=== PATIENT | male | born 1955 | race Caucasian/White ===

== ENCOUNTER 2017-02-25 06:24 | Day surgery (SDC) | payer BC ==
[~2017-02-25] VITALS: Ht 172.7 cm; Wt 76.3 kg
[2017-02-25] VITALS (10 sets, daily range): BP systolic 103–155; BP diastolic 58–75; PULSE 67–88; RESP 16–18; TEMP 97.9–101; O2SAT 96–100
[~2017-02-25 06:24] MED LIST: ASPI-183 PO; DILT120C50 PO; FLUT50SP EACH NARE; SIMV10TA PO; VIAG50TA PO; [UNRECOGNIZED DRUG - OTHER]
[2017-02-25] MEDS ORDERED: IOHEXOL 350 MG/ML 50 ML BTL (for Cath Lab) OTHER ONE (06:25)
[2017-02-25] MEDS ORDERED: SODIUM CHLORID 0.9% 500 ML IV PRN ×2 (06:45)
[2017-02-25] MEDS ORDERED: LACTATED RINGER'S 1000 ML IV PRN (06:45)
[2017-02-25] MEDS ORDERED: METOPROLOL TARTRATE 25 MG TAB PO PRN (06:45)
[2017-02-25] MEDS ORDERED: CHLORHEXIDINE GLUCONATE 2 % 1 PACK (2 CLOTHS) TOPICAL PRN (06:45)
[2017-02-25] MEDS ORDERED: LORazepam 1 MG TAB SL SCH (06:45)
[2017-02-25] MEDS ORDERED: POVIDONE IODINE 5% (ANTISEPSIS KIT) 4 APPLICATIONS EACH NARE PRN (06:45)
[2017-02-25] MEDS ORDERED: INSULIN HUMAN REGULAR 1,000 UNITS/10 ML VIAL SQ PRN (06:45)
[2017-02-25] MEDS ORDERED: HEPARIN SODIUM - IV 10,000 UNITS/10 ML VIAL ONE (07:07)
[2017-02-25] MEDS ORDERED: SODIUM CHLOR 0.9% 250 ML INJ 250 ML ONE (07:07)
[2017-02-25] MEDS ORDERED: ISOPROTERENOL HCL 1 MG/5 ML AMP ONE (07:07)
[2017-02-25] MEDS ORDERED: FUROSEMIDE 40 MG/4 ML VIAL ONE (07:07)
[2017-02-25] MEDS ORDERED: PROTAMINE SULFATE 50 MG/5 ML VIAL ONE (07:07)
[2017-02-25] MEDS ORDERED: HEPARIN-D5W 25,000 U/250 ML 250 ML ONE (07:07)
[2017-02-25] MEDS ORDERED: APIX5TAB PO (07:08)
[2017-02-25] MEDS ORDERED: TRIAPOW (07:08)
[2017-02-25 07:25] LABS: AUTOMATED NEUTROPHIL # 7.5 TH/MM3 (1.8-7.7); BASOPHIL % 0.2 % (0.0-2.0); EOSINOPHIL # 0.2 TH/MM3 (0-0.4); EOSINOPHIL % 1.8 % (0.0-4.0); HEMO FLAGS DIFF FINAL; LYMPH % 19.3 % (9.0-44.0); LYMPHOCYTE # 2.1 TH/MM3 (1.0-4.8); MEAN CELL VOLUME 89.8 FL (80.0-100.0); MEAN CORPUSCULAR HEMOGLOBIN 31.7 PG (27.0-34.0); MEAN CORPUSCULAR HGB CONC 35.3 % (32.0-36.0); MONO % 8.5 % (0.0-8.0); NEUT % 70.2 % (16.0-70.0); PLATELET COUNT 192 TH/MM3 (150-450); RED BLOOD COUNT 5.02 MIL/MM3 (4.50-5.90); RED CELL DISTRIBUTION WIDTH 12.6 % (11.6-17.2); WHITE BLOOD COUNT 10.7 TH/MM3 (4.0-11.0)
[2017-02-25 07:32] LABS: APTT (PATIENT) 26.4 SEC (24.3-30.1); PROTHROMBIN TIME - PATIENT 10.6 SEC (9.8-11.6)
[2017-02-25 07:39] LABS: BICARBONATE 28.8 MEQ/L (21.0-32.0)
[2017-02-25] MEDS ORDERED: LEVOFLOXACIN 500 MG PREMIX INJ 100 ML IV ONE (07:41)
[2017-02-25] MEDS ORDERED: HEPARIN-NS/PF INJ 2,000 ML ONE (07:45)
[2017-02-25] MEDS ORDERED: LIDOCAINE HCL 1% 50 ML VIAL INFIL PRN (10:15)
[2017-02-25] MEDS ORDERED: LORazepam 2 MG/ML VIAL IV PUSH PRN (10:15)
[2017-02-25] MEDS ORDERED: oxyCODONE/ACETAMINOPHEN 5 MG/325 MG TAB PO PRN ×2 (10:15)
[2017-02-25] MEDS ORDERED: SODIUM CHLOR 0.9% 250 ML INJ 250 ML IV PRN (10:15)
[2017-02-25] MEDS ORDERED: ATROPINE SULFATE 1 MG/ML VIAL IV PUSH PRN (10:15)
[2017-02-25] MEDS ORDERED: ONDANSETRON HCL 4 MG/2 ML VIAL IV PUSH PRN (10:15)
[2017-02-25] MEDS ORDERED: SILDENAFIL 50 MG PO PRN (10:15)
--- NOTE | 2017-02-25 10:17 | CATHPROC ---
[facility] HIS Report Study Information Study Number Admission Scheduled Start Study Start [id number] Feb 25 2017 6:24AM 02/25/2017 Feb 25 2017 7:06AM [place] Service Electrophysiology Study Admit Source Facility Department Other [facility] - Display Fabrication Supervisor Physician and Clinical Staff Initial Malinda Guevara Energy Advisor Winston Nesbitt,RT(R) Energy Advisor Dalila Chávez,JANNET Other Anesthesia, ROCK CONTRACTOR Recorder Gail Finch,STAR Scrub Anjelica Estrada,SHEET METAL WORK FURNACE INSTALLER TECH2 Procedures Performed Procedure Location (Site) Vessel Name Ablation Procedure CRYO Ablation LIPV LIPV CRYO Ablation LSPV LSPV CRYO Ablation RIPV RIPV CRYO Ablation RSPV RSPV ICE CATHETER INSERT RA Atruim Venogram LIPV LIPV Venogram LSPV LSPV Venogram RIPV RIPV Venogram RSPV RSPV Equipment Time Supervisor Coffee Description Size Mfg Part Number Used/Scraped COPILOT VALVE, BLEEDBACK [id number] 08:28 [employer] Used CONTROL *[id number] TRANSDUCER, TRUWAVE [id number] 08:28 FIGUEROA [employer] * Used W/STOCKCOCK *[id number] NEEDLE, TRANSSEPTAL NRG 98 08:28 [facility] [id number] Used C1 COVER, TRANSDUCER CABLE 08:28 [employer] 612-113 Used ACUNAV 08:28 CONMED LEADWIRE, DEFIBRILLATION PAD 2001M-PC Used SHEATH SET, FR12 CHECK-BLAINE RCF-12.0-38-J 08:28 COOK/PACER FR12 Used 13CM *[id number] 08:28 CORDIS/PACER SHEATH, FR10 CHIARA 11CM FR 10 [id number] Used [id number] 08:28 [employer] P[employer], CCL CUSTOM * Used *[id number] 08:28 NanoICE PACER STRICKLAND, LIMB * 2530 *[id number] Used PSI-4F- 08:29 Periscope MEDICAL SHEATH, FR4.5 PRELUDE 11CM FR 4.5 Used 035ACT PSI-4F- 08:28 Periscope MEDICAL SHEATH, FR4.5 PRELUDE 11CM FR 4.5 Used 035ACT [id number] 08:28 Periscope MEDICAL WIRE, 3MMJ .035 180CM 180CM Used *[id number] 08:28 NAMIC MANIFOLD, 4 PORT * Used *[id number] 08:28 NAMIC TUBING, HIGH PRESSURE 20" 20" Used *[id number] [id number] 08:28 NAMIC TUBING, HIGH PRESSURE 48" 48" Used *[id number] 08:28 NAMIC TUBING, HIGH PRESSURE 48" 48" Used *[id number] TUBING, PRESSURE MONITORING [id number] 08:28 NAMIC PACER 72" Used 72" *0481927 08:56 NYCOMED OMNIPAQUE, 300 MG, 150ML 150ML [id number] Used [id number] 08:28 [employer]ON[employer] MEDICAL BLANKET,WARM AIR CCL * Used *[id number] 582197 08:28 [facility] CATHETER, JSN, QUAD FR 5 Used *[id number] 832173 08:28 [facility] MEDICAL CATHETER, JSN, QUAD FR 5 Used *[id number] CW1145 08:28 [facility] MEDICAL ELECTRODE KIT, JESSICA X SURFACE * Used *[id number] 992390 08:28 [facility] SHEATH, EPS, FR6 FAST CATH FR 6 Used *[id number] 08:28 [facility] SHEATH, EPS, FR7 FAST CATH FR 7 [id number] Used 910100 08:28 [facility] MED[facility] SHEATH, EPS, FR8 FAST CATH FR 8 Used *[id number] SHEATH, FR8.5 STEERABLE SM 08:42 [facility] MEDICAL 71CM [id number] Used 71CM CATHETER, ACUNAV FR10 ICE [id number] 08:39 KARON FR 10 Used (KARON) *[id number] [facility] PAD, ELECTROSURGICAL 08:28 * [id number] *[id number] Used SURGICAL GROUNDING (BLUE) BALLOON, ARCTIC FRONT [id number] 08:47 [employer]IT[employer]RON [employer] Used ADVANCE 28MM *[id number] CATHETER, ACHEIVE MAPPING 2ACH20 08:44 [employer] 20MM Used 20MM *[id number] SHEATH, FR12 FLEXCATH 08:45 [employer]RON [employer] FR 12 [id number] Used STEERABLE Equipment Model, Serial, Lot Number and Expiration Data Description Model Number Serial Number Lot Number Expiration Date CATHETER, ACHEIVE MAPPING [id number] 07-11-2018 20MM History: Allergies Allergy Reaction No Known Allergies History: Risk Factors Hypertension Yes Medication Medication Total Dose (Bolus/Oral) Medication Total Dosage/Unit 1% XYLOCAINE 40 mL HEPARIN 41481 units PROTAMINE 40 mg Medications (Bolus/Oral) Medication Time Given Dosage/Unit Administered By Reason 1% XYLOCAINE 02/25/2017 8:30:58 AM 20 mL Malinda Barron 20 mL 1% XYLOCAINE given in lab by Malinda Barron in Left Groin via Subcutaneous. Ordered by Joseph Barron 1% XYLOCAINE 02/25/2017 8:34:33 AM 20 mL Malinda Barron 20 mL 1% XYLOCAINE given in lab by Malinda Barron in Right Groin via Subcutaneous. Ordered by Rosanne Barron. HEPARIN 02/25/2017 8:43:34 AM 65983 units Anesthesia, ROCK CONTRACTOR As per physicians v erbal order 82614 units HEPARIN given in lab by Anesthesia, ROCK CONTRACTOR via Peripheral IV. Ordered by Malinda Barron. Nancy son: As per physicians verbal order. HEPARIN 02/25/2017 8:57:48 AM 1000 units Anesthesia, ROCK CONTRACTOR As per physicians v erbal order 1000 units HEPARIN given in lab by Anesthesia, ROCK CONTRACTOR via Peripheral IV. Ordered by Malinda Barron. Reas on: As per physicians verbal order. HEPARIN 02/25/2017 9:12:19 AM 2000 units Anesthesia, ROCK CONTRACTOR As per physicians v erbal order 2000 units HEPARIN given in lab by Anesthesia, ROCK CONTRACTOR via Peripheral IV. Ordered by Malinda Barron. Reas on: As per physicians verbal order. HEPARIN 02/25/2017 9:27:32 AM 1000 units Anesthesia, ROCK CONTRACTOR As per physicians v erbal order 1000 units HEPARIN given in lab by Anesthesia, ROCK CONTRACTOR via Peripheral IV. Ordered by Malinda Barron. Reas on: As per physicians verbal order. PROTAMINE 02/25/2017 9:59:51 AM 40 mg Anesthesia, ROCK CONTRACTOR As per physicians julio cesar bal order 40 mg PROTAMINE given in lab by Anesthesia, ROCK CONTRACTOR. Ordered by Malinda Barron. Reason: As per physicians verbal order. Medication (Drip) Medication Time Given Dosage/Unit Concentration/Unit Diluent (ml) Solution HEPARIN DRIP 02/25/2017 8:58:04 AM 1000 units/hr 54784 units 250 D5W 1000 units/hr HEPARIN DRIP given in lab by Anesthesia, ROCK CONTRACTOR via Peripheral IV. Pump/Drip Flow = 10 ml /hr using D5[place] [address] units in 250 ml. Ordered by Malinda Barron. Reason: As per physicians verbal order. ISUPREL 02/25/2017 9:46:14 AM 20 mcg/min 1 mg 250 NaCl .9 20 mcg/min ISUPREL given in lab by Anesthesia, ROCK CONTRACTOR via Peripheral IV. Pump/Drip Flow = 300 ml/hr usi ng NaCl .9 with a concentration of 1 mg in 250 ml. Ordered by Malinda Barron. Reason: As per physicians verbal order. LEVAQUIN 02/25/2017 8:00:10 AM 100 mL/hr 500 100 NaCl .9 100 mL/hr LEVAQUIN given in lab by Anesthesia, ROCK CONTRACTOR in Right Antecubital via Peripheral IV. Pump/Drip Flow = 0 ml/hr using NaCl .9 with a concentration of 500 in 100 ml. Ordered by Malinda Barron. Reason: As per physicians verbal order. fol ey insertion Initial Case Assessment Cardiovascular HR Rhythm NIBP Chest Pain 64 sr 135/70 0 Edema Present Skin color Skin None Normal Warm Dry Circulatory - Right Pulses Dorsalis Pedis 2 Scale (0,1,2,3,4,d) Circulatory - Left Pulses Dorsalis Pedis 2 Scale (0,1,2,3,4,d) Circulatory - Lower Extremities Color Lower Right Color Lower Left Normal Normal Neurological State Oriented to time-place- Alert Moves all extremities person Respiration - General Respiration Rate SpO2 (%) (B/min) 18 99 Final Case Assessment Cardiovascular HR Rhythm NIBP Chest Pain 69 sr 132/69 0 Edema Present Skin color Skin None Normal Warm Dry Circulatory - Right Pulses Dorsalis Pedis 1 Scale (0,1,2,3,4,d) Circulatory - Left Pulses Dorsalis Pedis 1 Scale (0,1,2,3,4,d) Circulatory - Lower Extremities Color Lower Right Color Lower Left Normal Normal Neurological State Lethargic Moves all extremities Respiration - General Respiration Rate SpO2 (%) O2 (lpm) (B/min) 16 100 4 Chronological Log Time Study Chronological Log 7:38:16 Patient arrived via Bed. 7:38:17 Patient Name, D.O.B, / Armband Verified By R.N. 7:38:18 Consent signed by the physician and the patient and verified by the Display Fabrication Supervisor staff. 7:38:18 Pre-op and post- op instructions given; patient acknowledges understanding of instructions. 7:38:19 Verbal Stimulation=2 Physical Stimulation=2 Airway=2 Respiration=2 TOTAL=8. (0=absent, 1=li mited, 2=present) 7:38:29 Patient has been NPO for More than 6Hrs. 7:38:29 Skin Breakdown-none per pt 7:38:37 Patient Warmer Placed on the Table. 7:38:38 Disposable Defibrillator Pads Placed On Patient. 7:38:40 Josiane Prominences Protected 7:38:40 A # 20 IV was noted in the Antecubital (right). Grade = 0 0.9ns kvo 7:38:41 A # 20 IV was noted in the Antecubital (left). Grade = 0 0.9ns kvo 7:38:43 History and physical on the chart or being dictated. 7:39:08 Anesthesia at bedside. Assumes care of patient. Tree 7:55:00 Pt intubated. 14 fr newton inserted with out difficulty. Clear yellow urine obtained. Assessment: Initial Case, HR=64 BPM, Rhythm=sr, ISEB=073/70 mmhg, Chest Pain=0, Edema=None, Butler r=Normal, Skin = Warm, Dry Right Pulses: Andrew Ped=2 Left Pulses: Andrew Ped=2 7:55:37 Lower Right Extremities: Color=Normal Lower Left Extremities: Color=Normal Neurological: State=Alert, Ox3, [place] Respiration: Resp=18 B/min, SpO2=99 % 7:56:26 Table restraints applied according to hospital policy 7:58:53 Reference ECG taken 8:00:00 Bilateral groins prepped with 2% chlorhexidine, and draped after a 3 minute waiting time. 100 mL/hr LEVAQUIN given in lab by Anesthesia, ROCK CONTRACTOR in Right Antecubital via Peripheral IV. Pump /Drip Flow = 0 8:00:10 ml/hr using NaCl .9 with a concentration of 500 in 100 ml. Ordered by Malinda Barron. Reason: As per physicians verbal order. newton insertion 8:09:17 MD paged 8:11:21 MD responded 8:21:06 MD arrived. 8:23:46 Pressure channel 1 zeroed. Time Out. Correct patient, procedure, procedure equipment, site and side verified with physician present. Time 8:26:00 concurred by MD, individual staff and ROCK CONTRACTOR. Time Out #2 - Consents verified, patient in correct position, all results are labled and display ed, safety precautions 8:26:28 taken, antibiotics administered. Time out concurred by MD, individual staff and ROCK CONTRACTOR in procedur e 8:26:42 Case Start 8:26:49 Alvaro in progress. 8:29:56 Alvaro complete. 8:30:58 20 mL 1% XYLOCAINE given in lab by Malinda Barron in Left Groin via Subcutaneous. Ordered by Malinda Barron. 8:31:28 Vascular access was obtained in the Fem Vein (left). 8:31:34 Vascular access was obtained in the Fem Vein (left). 8:31:39 Vascular access was obtained in the Fem Vein (left). 8:31:59 Vascular access was obtained in the Fem Art (left). A SHEATH, FR4.5 PRELUDE 11CM FR 4.5 was advanced into the Fem Art (left) using the Modified Seld donte technique. 8:32:22 0.9 ns pressure bag connected. 8:32:49 A SHEATH, EPS, FR6 FAST CATH FR 6 was advanced into the Fem Vein (left) using the Modified S eldinger technique. 8:32:59 A SHEATH, EPS, FR7 FAST CATH FR 7 was advanced into the Fem Vein (left) using the Modified S eldinger technique. 8:33:02 A SHEATH, FR10 CHIARA 11CM FR 10 was advanced into the Fem Vein (left) using the Modified Se rosas technique. 8:34:33 20 mL 1% XYLOCAINE given in lab by Malinda Barron in Right Groin via Subcutaneous. Ordered by Malinda Barron. 8:35:06 Vascular access was obtained in the Fem Vein (right). 8:35:14 A SHEATH, EPS, FR8 FAST CATH FR 8 was advanced into the Fem Vein (right) using the Modified Seldinger technique. A CATHETER, JSN, QUAD FR 5 was advanced vis Fem Vein (left) and placed in the CS. Placement was visually 8:37:33 confirmed under fluoroscopy. A CATHETER, JSN, QUAD FR 5 was advanced vis Fem Vein (left) and placed in the HIS. Placement was visually 8:37:43 confirmed under fluoroscopy. 8:38:40 CATHETER, ACUNAV FR10 ICE (KARON) FR 10 Was Postioned. A SHEATH, FR8.5 STEERABLE SM 71CM 71CM was exchanged in the Fem Vein (right). This was necessary in order for 8:39:30 catheter support. 8:40:43 [place] in 8:42:07 A eps was advanced to the right atrium and passed through the septal wall to the left atrium . 8:42:13 [place] out 06721 units HEPARIN given in lab by Anesthesia, ROCK CONTRACTOR via Peripheral IV. Ordered by Malinda Barron . Reason: As per 8:43:34 physicians verbal order. A SHEATH, FR12 FLEXCATH STEERABLE FR 12 was exchanged in the Fem Art (right). This was necessary in order to 8:45:00 accomodate a larger catheter. A CATHETER, ACHEIVE MAPPING 20MM 20MM was advanced vis Fem Vein (right) and placed in the LA. Pl acement was 8:45:50 visually confirmed under fluoroscopy. 8:46:37 A BALLOON, ARCTIC FRONT ADVANCE 28MM was inserted via the Fem Vein (right). 8:48:42 Mapping in progress. 8:50:40 Activated Clotting Time Drawn 8:54:29 The LSPV was manually injected with 10 cc's of contrast. OMNIPAQUE, 300 MG, 150ML 150ML used . 8:57:01 ACT (Normal Range 90-180) = 327 1000 units HEPARIN given in lab by Anesthesia, ROCK CONTRACTOR via Peripheral IV. Ordered by Malinda Barron. Reason: As per 8:57:48 physicians verbal order. 8:57:58 First 2 cryos aborted d/y cryo machine 8:58:00 Cryo Ablation of the LSPV with a BALLOON, ARCTIC FRONT ADVANCE 28MM. 1st 1000 units/hr HEPARIN DRIP given in lab by Anesthesia, ROCK CONTRACTOR via Peripheral IV. Pump/Drip Flow = 10 ml/hr using 8:58:04 D[place] [address] units in 250 ml. Ordered by Malinda Barron. Reason: As per phys icians verbal order. 9:02:10 Cryo Ablation of the LSPV with a BALLOON, ARCTIC FRONT ADVANCE 28MM. 2nd 9:03:41 Activated Clotting Time Drawn 9:08:52 Cryo Ablation of the LIPV with a BALLOON, ARCTIC FRONT ADVANCE 28MM. 1st 9:09:53 ACT (Normal Range 90-180) = 328 9:10:49 The LIPV was manually injected with 10 cc's of contrast. OMNIPAQUE, 300 MG, 150ML 150ML used . 2000 units HEPARIN given in lab by Anesthesia, ROCK CONTRACTOR via Peripheral IV. Ordered by Malinda Barron. Reason: As per 9:12:19 physicians verbal order. 9:15:56 Cryo Ablation of the LIPV with a BALLOON, ARCTIC FRONT ADVANCE 28MM. 2nd 9:20:22 Activated Clotting Time Drawn 9:23:13 Cryo Ablation of the RIPV with a BALLOON, ARCTIC FRONT ADVANCE 28MM. 1st 9:26:07 ACT (Normal Range 90-180) = 341 1000 units HEPARIN given in lab by Anesthesia, ROCK CONTRACTOR via Peripheral IV. Ordered by Malinda Barron. Reason: As per 9:27:32 physicians verbal order. 9:30:22 The RIPV was manually injected with 10 cc's of contrast. OMNIPAQUE, 300 MG, 150ML 150ML used . 9:30:41 Cryo Ablation of the RIPV with a BALLOON, ARCTIC FRONT ADVANCE 28MM. 2nd 9:34:03 Activated Clotting Time Drawn 9:36:33 The RSPV was manually injected with 10 cc's of contrast. OMNIPAQUE, 300 MG, 150ML 150ML used . 9:37:00 Cryo Ablation of the RSPV with a BALLOON, ARCTIC FRONT ADVANCE 28MM. 1st 9:39:14 ACT (Normal Range 90-180) = 357 9:41:25 The RSPV was manually injected with 10 cc's of contrast. OMNIPAQUE, 300 MG, 150ML 150ML used . 9:41:33 Cryo Ablation of the RSPV with a BALLOON, ARCTIC FRONT ADVANCE 28MM. 2nd 20 mcg/min ISUPREL given in lab by Anesthesia, ROCK CONTRACTOR via Peripheral IV. Pump/Drip Flow = 300 ml/h r using NaCl .9 9:46:14 with a concentration of 1 mg in 250 ml. Ordered by Malinda Barron. Reason: As per physicians verb al order. 9:56:02 Isuprel off. 9:57:52 Quad Catheter(s) removed without difficulty. A SHEATH SET, FR12 CHECK-BLAINE 13CM FR12 was exchanged in the Fem Vein (right). This was necessary in order to 9:58:10 minimize site leakage. 9:58:55 PACU called. Spoke to Crystal 9:59:00 Bedside Report will be given. 40 mg PROTAMINE given in lab by Anesthesia, ROCK CONTRACTOR. Ordered by Malinda Barron. Reason: As per phy sicians verbal 9:59:51 order. 10:01:03 Sheath(s) left in place, sutured, 0.9ns kvo connected and will be removed in Holding Area 10:02:02 Ablation procedure performed: AFIB. 10:02:09 EP Procedure was performed. 10:02:24 Sterile dressing applied to sites 10:03:24 Defibrillator and ground pads removed. Skin intact. 10:03:33 End of case Body Temp 36.1. 10:03:40 No case complications noted. 10:03:45 Cine recording checked. 10::40 Activated Clotting Time Drawn 10:13:35 Case End 10:13:43 ACT (Normal Range 90-180) = 152 Assessment: Final Case, HR=69 BPM, Rhythm=sr, KPSP=863/69 mmhg, Chest Pain=0, Edema=None, Butler r=Normal, Skin = Warm, Dry Right Pulses: Andrew Ped=1 Left Pulses: Andrew Ped=1 10:13:54 Lower Right Extremities: Color=Normal Lower Left Extremities: Color=Normal Neurological: State=Lethargic, [place] Respiration: Resp=16 B/min, VgC9=954 %, O2=4 lpm 10:20:54 Patient moved to stretcher End Study - Contrast Media Used In Study Contrast Total Opened (mL) Total Used (mL) Total Wasted (mL) Omnipaque 150 50 100 End Study - Radiation Exposure Fluoro Time (minutes) 6.8 End Study - Patient Disposition Complications Transferred To Interventional Outcome No Telemetry Bed successful
[2017-02-25] MEDS ORDERED: DO NOT ADM ANY ANTICOAGULANT DRUGS PRN (10:26)
[2017-02-25] MEDS ORDERED: BACITRACIN OINT 0.9 GM PKT TOP ONE (11:00)
--- NOTE | 2017-02-25 13:55 | PD.CARD ---
Atrial Fibrillation Cryo Study PROCEDURE DATE: Feb 25, 2017 PROCEDURE PERFORMED Electrophysiology study, CS cannulation, 3-D mapping, transeptal approach, right and left heart catheterization, cryoablation of atrial fibrillation, pulmonary vein isolation, posterior ablation, anterior ablation, repeat electrophysiology study on Isuprel infusion, intracardiac echo. Very complex case. INDICATIONS FOR PROCEDURE Mr. Solorzano is a 61-year-old male with atrial fibrillation, symptomatic, on anticoagulation, referred for electrophysiology study and ablation. The risks, the nature and the benefit of the procedure are clearly stated to him. The risks include pneumothorax, cardiac perforation, stroke, need for open heart surgery and even . The patient understood and agreed to proceed. PROCEDURE As written informed consent was obtained prior to esophageal echo, the patient was kept on the table where he was prepped and draped in the usual sterile fashion. Conscious sedation was initiated and throughout the procedure by the anesthesiologist. Once sedation was verified, the right and left inguinal area was anesthetized with 2% Xylocaine. Using modified Seldinger technique, the left femoral vein was cannulated on three occasions and three guidewires were advanced over the wire, one 6, one 7, and one 10-Hungarian Hemaquet were advanced. Then the left femoral artery was done on one occasion, one guidewire was advanced over the wire. A 4-Hungarian Hemaquet was advanced. Then the right femoral vein was cannulated on one occasion and one guidewire was advanced over the wire. An 8-Hungarian Hemaquet was advanced. Then under fluoroscopic guidance through the 6 and 7-Hungarian Hemaquet, two 5- Hungarian Newton curved quadripolar electrophysiology catheters were advanced and positioned on the His as well as coronary sinus. The patient was in sinus rhythm. Basic interval was measured. They were all within normal limits. Then through the 10-Hungarian Hemaquet, a [employer] AcuNav intracardiac echo catheter was advanced and placed at the right atrium. Multiple views were obtained. There was no pericardial effusion. Pulmonary vein was seen. The atrial septum was visualized. Then the 8-Hungarian Hemaquet in the right femoral vein was exchanged for an Agilis transseptal sheath that was placed all the way to the superior vena cava. Through this sheath a [place] needle was advanced. Then the sheath, the dilator and the needle were pulled back progressively until foci engaged. Once the needle was advanced, RF was delivered for 2 seconds. I was able to cross into the left atrium. Once the needle was crossed, the dilator was advanced. Once the dilator was crossed, the sheath was advanced. Once the sheath crossed , the dilator and needle were removed. An intracardiac echo showed the sheath in good position. The patient already received 10,000 units of heparin. The goal is to get an ACT around 350 during the ablation. Through this sheath a [place]ak 20-pole circumferential catheter was advanced. Using [employer] endocardial solution mapping system a three-dimensional configuration of the left atrium was obtained. Points were taken at the left superior and inferior vein, right superior and inferior vein, mitral valve, and appendage. Then at this point I decided to proceed with cryoablation. The circumferential catheter was removed. Through the sheath a 0.035 wire was advanced. I did exchange the Agilis sheath for a Accelalox flex sheath. I decided to use a 28mm balloon. The balloon was advanced over the wire. First I did engage the left superior vein. The balloon was inflated, complete occlusion obtained. CryoEnergy was delivered for 3 and 3 minutes. Temperature reached -48. Then I did engage the left inferior vein, occlusion obtained. Venography showed complete occlusion and CryoEnergy was delivered for 3 and 3 minutes. Temperature was around -46 to -52. Then the right inferior was engaged, complete occlusion obtained. Temperature reach -48 for 3 and 3 minutes. Then the right superior was engaged. Before CryoEnergy of the right veins, the His catheter was placed at the left and the right subclavian. Phrenic nerve pacing was performed. There was diaphragmatic stimulation. That is going to be used for phrenic nerve monitoring during cryoablation. I did cryoablate the right superior vein. There was no loss of phrenic nerve movement , diaphragmatic movement. Phrenic nerve was intact. The temperature dropped to -56 for 3 and 3 minutes. At that point I removed the balloon. The circumferential catheter was advanced into the veins. There was no significant signal recorded . Pacing from the vein showed no conduction to the atrium. Pacing from the atrium showed no conduction to the veins. The patient at this point received Isuprel was infused for over 10 minutes at 20 mcg. No tachyarrhythmia was induced, no conduction resumed. Post-Isuprel no conduction resumed either. At that point the procedure was complete. All catheters were removed, the transeptal sheath was exchanged for a 12-Hungarian Hemaquet. Intracardiac echo showed pericardial effusion, still good flow in the pulmonary vein. No incident reported. The patient tolerated the procedure. Blood loss minimal. 1. Electrocardiogram: At baseline the patient was in sinus. Postprocedure the patient in sinus. 2. Basic Interval: Base cycle length was around 920 milliseconds. 3. Tachyarrhythmia: Atrial fibrillation was mapped and ablated. Ablation was successful. CONCLUSION Successful electrophysiology study, mapping and radiofrequency ablation of atrial fibrillation, pulmonary vein isolation, posterior and anterior wall ablation, repeat electrophysiology study on Isuprel infusion. COMMENT AND RECOMMENDATIONS The patient is going to be transferred to the telemetry unit, will be observed, and when stable can be discharged home. Malinda Barron MD Feb 25, 2017 13:55
[2017-02-25] MEDS: APIXABAN 5 MG TABLET PO SCH ×2 (14:17→21:00)
[2017-02-25] MEDS: FLUTICASONE PROPIONATE 50 MCG/ACT 16 GM NASAL SPRAY EACH NARE SCH (21:00)
[2017-02-25] MEDS ORDERED: ACETAMINOPHEN 325 MG TAB PO PRN (22:45)
--- NOTE | 2017-02-25 22:48 | RADRPT ---
EXAM DATE/TIME: 02/25/2017 22:31 [place] COMPARISON: No previous studies available for comparison. INDICATIONS : Cough and congestion MEDICAL HISTORY : None. SURGICAL HISTORY : None. ENCOUNTER: Initial ACUITY: 3 days PAIN SCORE: 0/10 LOCATION: chest FINDINGS: A single view of the chest demonstrates the lungs to be symmetrically aerated without evidence of mas s, infiltrate or effusion. Minimal linear atelectatic changes laterally in the left lower lung field . The cardiomediastinal contours are unremarkable. Osseous structures are intact. CONCLUSION: No acute infiltrate. Marcos Mascorro MD on February 25, 2017 at 22:45 Board Certified Radiologist. This report was verified electronically.
[2017-02-26] VITALS (13 sets, daily range): BP systolic 107–126; BP diastolic 54–74; PULSE 61–74; RESP 14–18; TEMP 98.3–98.5; O2SAT 96–97
[2017-02-26 06:46] LABS: APTT (PATIENT) 27.8 SEC (24.3-30.1); PROTHROMBIN TIME - PATIENT 11.2 SEC (9.8-11.6)
[2017-02-26] MEDS: APIXABAN 5 MG TABLET PO SCH (08:42)
[2017-02-26] MEDS ORDERED: DILTIAZEM-CD 180 MG CAP ER PO SCH (09:00)
[2017-02-26] MEDS: FLUTICASONE PROPIONATE 50 MCG/ACT 16 GM NASAL SPRAY EACH NARE SCH (09:00)
[2017-02-26] MEDS ORDERED: PRAVASTATIN SOD 20 MG TAB PO SCH (09:00)
[2017-02-26] MEDS ORDERED: INFLUENZA VIRUS VACCINE (QUADRIVALENT) 0.5 ML SYR IM ONE (10:00)
--- NOTE | 2017-02-26 11:15 | HHI.PR ---
Subjective Remarks Feeling ok Objective Vital Signs Date Time Temp Pulse Resp B/P (MAP) Pulse Ox O2 Delivery O2 Flow Rate FiO2 02/26/17 06:03 68 02/26/17 05:00 61 02/26/17 04:00 74 02/26/17 03:00 98.5 72 14 107/54 (71) 96 02/26/17 03:00 69 02/26/17 02:00 62 02/26/17 01:00 64 02/26/17 00:00 64 02/25/17 23:00 68 02/25/17 23:00 100.2 76 16 111/58 (75) 97 02/25/17 22:00 70 02/25/17 21:00 70 02/25/17 20:00 82 02/25/17 19:00 101.0 88 18 103/74 (84) 98 02/25/17 19:00 74 02/25/17 17:07 87 02/25/17 15:00 75 02/25/17 15:00 97.9 75 18 116/67 (83) 96 02/25/17 12:07 70 02/25/17 11:35 98.5 67 16 131/70 (90) 97 02/25/17 11:27 98.7 68 19 114/62 (79) 100 Nasal Cannula 2 02/25/17 11:15 69 15 118/64 (82) 100 Nasal Cannula 2 I/O 02/25/17 02/25/17 02/25/17 02/26/17 02/26/17 02/26/17 07:00 15:00 23:00 07:00 15:00 23:00 Intake Total 400 ml 840 ml Output Total 650 ml 300 ml Balance -250 ml 540 ml Intake Oral 400 ml 840 ml Output Urine Total 650 ml 300 ml # Voids 3 # Bowel Movements 1 Result Diagram: 02/25/17 0700 02/25/17 0700 Imaging Alert, fully oriented Lungs: ventilated Heart: S1, S2 regular, ventilated abdomen: soft, no mass Ext: no edema Last Impressions Chest X-Ray 02/25/17 0000 Signed Impressions: Service Date/Time: Saturday, February 25, 2017 22:31 - CONCLUSION: No acute infiltrate. Marcos Mascorro MD Current Medications Medications (Trade) Dose Ordered Sig/Kristina Route Start Time Stop Time Status Last Admin Lactated Ringer's 1,000 ml @ 30 mls/hr Q24H PRN IV 02/25/17 06:45 02/28/17 06:44 Sodium Chloride 500 ml @ 30 mls/hr [id number] PRN IV 02/25/17 06:45 02/28/17 06:44 (Lopressor) 25 mg [employer] PRN PO 02/25/17 06:45 02/28/17 06:44 (Betadine 5% Antisepsis Kit) 1 applic [employer] PRN EACH NARE 02/25/17 06:45 02/28/17 06:44 (Chlorhexidine 2% Cloth) 3 pack [employer] PRN TOPICAL 02/25/17 06:45 02/28/17 06:44 (NovoLIN R INJ) See Protocol Table ... [employer] PRN SQ 02/25/17 06:45 02/28/17 06:44 Sodium Chloride 500 ml @ 30 mls/hr [id number] PRN IV 02/25/17 06:45 (Ativan) 1 mg [employer] SL 02/25/17 06:45 02/28/17 06:44 (Percocet 5-325 Mg) 1 tab Q4H PRN PO 02/25/17 10:15 (Percocet 5-325 Mg) 2 tab Q4H PRN PO 02/25/17 10:15 (Atropine Inj) 0.5 mg UNSCH PRN IV PUSH 02/25/17 10:15 (Zofran Inj) 4 mg Q4H PRN IV PUSH 02/25/17 10:15 (Eliquis) 5 mg BID PO 02/25/17 12:00 02/26/17 08:42 (Flonase Henry Spr) 2 spray BID EACH NARE 02/25/17 21:00 (Pravachol) 20 mg DAILY PO 02/26/17 09:00 (Cardizem Cd) 180 mg DAILY PO 02/26/17 09:00 02/26/17 08:41 (Tylenol) 650 mg Q6H PRN PO 02/25/17 22:45 02/25/17 23:38 Assessment and Plan Problem List: (1) Atrial fibrillation ICD Codes: I48.91 - Atrial fibrillation Status: Acute Plan: SP ablation In sinus rhythm doing well can be DH Follow up as previously scheduled Malinda Barron MD Feb 26, 2017 11:15
[2017-02-26] MEDS ORDERED: CARD180C5 PO (11:18)
--- NOTE | 2017-02-26 14:47 | EKG ---
Date Performed: 02/25/2017 Time Performed: 11:20:24 PTAGE: 61 years EKG: Sinus rhythm POSSIBLE RIGHT VENTRICULAR CONDUCTION DELAY BORDERLINE ECG Since PREVIOUS TRACING , no significant change noted PREVIOUS EC02/25/2017 07.17.14 DOCTOR: Cielo Medina Interpretating Date/Time 02/26/2017 18:11:51
--- NOTE | 2017-02-26 18:10 | EKG ---
Date Performed: 02/25/2017 Time Performed: 07:17:14 PTAGE: 61 years EKG: Sinus rhythm . rSr'(V1) - probable normal variant Normal ECG NO PREVIOUS TRACING DOCTOR: Cielo Medina Interpretating Date/Time 02/26/2017 18:09:14
--- NOTE | 2017-02-26 18:10 | EKG ---
Date Performed: 02/26/2017 Time Performed: 02:57:40 PTAGE: 61 years EKG: Sinus arrhythmia Since previous tracing, no significant change noted Normal ECG PREVIOUS TRACING : 02/25/2017 11.20 DOCTOR: Cielo Medina Interpretating Date/Time 02/26/2017 18:10:08
== END 2017-02-26 12:37 | disposition home or self-care (01) ==
LOC: HDIC 06:24 → HDOC 06:24 → HCIS 11:52 → HDOC 02-26 12:37
PROVIDERS: ATTEND Internal Medicine Interventional Cardiology
DX: I48.91 Unspecified atrial fibrillation (principal); I10 Essential (primary) hypertension; E78.5 Hyperlipidemia, unspecified; Z79.01 Long term (current) use of anticoagulants
CPT/HCPCS: 00537; 71010; 80048; 85002; 85025; 85610; 85730; 86850; 86900; 86901; 93005; 93312; 93320; 93325; 93613; 93623; 93656; 93662; C1730; C1731; C1732; C1733; J1644; J1940; J1956; J2720; J7050; Q9967

== ENCOUNTER 2017-02-26 22:34 | Observation (INO) | payer BC ==
[~2017-02-26] VITALS: Ht 172.7 cm; Wt 78.0 kg
[~2017-02-26 22:34] MED LIST changes: +APIX5TAB PO; -ASPI-183 PO; +CARD180C5 PO; -DILT120C50 PO; +TRIAPOW; -[UNRECOGNIZED DRUG - OTHER]
[2017-02-26 22:36] VITALS: BP 167/81; PULSE 82; RESP 18; TEMP 98.7; O2SAT 97
[2017-02-26 23:09] LABS: AUTOMATED NEUTROPHIL # 12.7 TH/MM3 (1.8-7.7); BASOPHIL # 0.1 TH/MM3 (0-0.2); BASOPHIL % 0.4 % (0.0-2.0); EOSINOPHIL # 0.1 TH/MM3 (0-0.4); EOSINOPHIL % 0.4 % (0.0-4.0); HEMATOCRIT 43.6 % (39.0-51.0); HEMO FLAGS DIFF FINAL; LYMPHOCYTE # 2.4 TH/MM3 (1.0-4.8); MEAN CELL VOLUME 90.9 FL (80.0-100.0); MEAN CORPUSCULAR HEMOGLOBIN 30.2 PG (27.0-34.0); MEAN CORPUSCULAR HGB CONC 33.2 % (32.0-36.0); MONO % 6.6 % (0.0-8.0); NEUT % 77.6 % (16.0-70.0); PLATELET COUNT 217 TH/MM3 (150-450); RED CELL DISTRIBUTION WIDTH 12.7 % (11.6-17.2); WHITE BLOOD COUNT 16.3 TH/MM3 (4.0-11.0)
--- NOTE | 2017-02-26 23:15 | PD ---
HPI Chief Complaint: Chest Pain Time Seen by Provider: 22:44 Travel History International Travel<30 days: No Contact w/Intl Traveler<30days: No Traveled to known affect area: No History of Present Illness HPI The patient is 61 year old male who presents to the [facility] emergency department with a history of central chest pain that he reports began between 7 and 8 PM today. The patient reports that it began after a walk. The patient reports that he was just discharged from the hospital yesterday after being admitted for a cardiac ablation under . The patient reports having a history of atrial fibrillation since 2011. He denies having any prior history of coronary artery disease. The patient reports that over the weekend he did have cough and congestion from an upper respiratory infection develop. He reports that last night while he was in the hospital he did develop a fever with a MAXIMUM TEMPERATURE of 100.8. He was told that a chest x-ray revealed some lung congestion. He denies being on any antibiotic. He is anticoagulated on Eliquis. He denies having any shortness of breath. He reports that the chest pain does not radiate anywhere. He reports that the pain is an aching/ tightening sensation. He reports that it is worse with taking a deep breath. He denies having any nausea or vomiting associated with this. He denies having any diaphoresis. He reports that his cough is now productive of yellow to green sputum. Otherwise on review of systems, the patient denies having any neck pain, abdominal pain, diarrhea, urinary symptoms, or neurologic symptoms. [facility] Past Medical History Narrative Medical The patient's past medical history is significant for hyperlipidemia, history of paroxysmal atrial fibrillation, history of psoriasis. Heart Rhythm Problems: Yes (AFIB) Cardiovascular Problems: Yes (AFIB) High Cholesterol: Yes Chest Pain: No Congestive Heart Failure: No Genitourinary: No Musculoskeletal: No Neurologic: No Reproductive: No Respiratory: No Tetanus Vaccination: Unknown Influenza Vaccination: Yes Past Surgical History Narrative Surgical The patient's past surgical history is significant for cardiac ablation Abdominal Surgery: No Cardiac Surgery: No Ear Surgery: No Endocrine Surgery: No Eye Surgery: No Genitourinary Surgery: No Gynecologic Surgery: No Oral Surgery: No Thoracic Surgery: No Other Surgery: Yes (cardiac ablasion) Social History Alcohol Use: No Tobacco Use: No Substance Use: No Allergies-Medications (Allergen,Severity, Reaction): Coded Allergies: No Known Allergies (Verified Allergy, Unknown, 02/25/17) Reported Meds & Prescriptions Reported Meds & Active Scripts Active Cardizem CD 24 HR (Diltiazem CD 24 HR) 180 Mg Caper 180 Mg PO DAILY 30 Days Simvastatin 10 Mg Tab 10 Mg PO DAILY Viagra (Sildenafil Citrate) 50 Mg Tab 50 Mg PO DAILY PRN Fluticasone Nasal Hooper 50 Mcg/Act Naspr 2 Hooper EACH NARE BID 50 mcg/spray Reported Triamcinolone Acetonide (Triamcinolone Acetonide (Topic) 100 % Pow Eliquis (Apixaban) 5 Mg Tab 5 Mg PO BID Review of Systems Except as stated in HPI: all other systems reviewed are Neg General / Constitutional: Positive: Fever Eyes: No: Visual changes HENT: Positive: Congestion, No: Headaches Cardiovascular: Positive: Chest Pain or Discomfort Respiratory: Positive: Cough, No: Shortness of Breath Gastrointestinal: No: Abdominal Pain Genitourinary: No: Dysuria Musculoskeletal: No: Pain Skin: No Rash Neurologic: No: Weakness, Focal Abnormalities, Change in Mentation, Slurred Speech, Sensory Disturbance Psychiatric: No: Depression Endocrine: No: Polydipsia Hematologic/Lymphatic: No: Easy Bruising Physical Exam Narrative General: The patient is a well-developed well-nourished male in no acute distress. Head and Neck exam: Head is normocephalic atraumatic. Eyes: EOMI, pupils are equal round and reactive to light. Nose: Midline septum with pink mucous membranes Mouth: Dentition unremarkable. Moist mucus membranes. Posterior oropharynx is not erythematous. No tonsillar hypertrophy. Uvula midline. Airway patent. Neck: No palpable lymphadenopathy. No nuchal rigidity. No thyromegaly. Cardiovascular: Regular rate and rhythm without murmurs, gallops, or rubs. Lungs: The patient has decreased breath sounds in bilateral bases. No rhonchi, no crackles, no wheezes audible. No accessory muscle use noted. No tripoding or paroxysmal abdominal breathing. Abdomen: Soft, without tenderness to palpation in all 4 quadrants of the abdomen. No guarding, rebound, or rigidity. Normal bowel sounds are audible. No tenderness on palpation of McBurney's point. Extremities: No clubbing, cyanosis, or edema. 2+ pulses in all 4 extremities. No calf tenderness on palpation. Back: No spinous process tenderness to palpation. No costovertebral angle tenderness to palpation. Neurologic Exam: Grossly nonfocal. Skin Exam: No rash noted. Intact skin that is warm and dry. Data Data Last Documented VS Vital Signs Date Time Temp Pulse Resp B/P (MAP) Pulse Ox O2 Delivery O2 Flow Rate FiO2 02/26/17 22:49 77 02/26/17 22:36 98.7 18 167/81 (109) 97 Room Air Orders Orders Electrocardiogram (02/26/17 22:53) Complete Blood Count With Diff (02/26/17 22:53) Comprehensive Metabolic Panel (02/26/17 22:53) Creatine Kinase (Cpk) (02/26/17 22:53) Ckmb (Isoenzyme) Profile (02/26/17 22:53) Troponin I (02/26/17 22:53) B-Type Natriuretic Peptide (02/26/17 22:53) Prothrombin Time / Inr (Pt) (02/26/17 22:53) Act Partial Throm Time (Ptt) (02/26/17 22:53) Lipase (02/26/17 22:53) Westergren Sedimentation Rate (02/26/17 22:53) Magnesium (Mg) (02/26/17 22:53) Chest, Single Ap (02/26/17 22:53) Iv Access Insert/Monitor (02/26/17 22:53) Ecg Monitoring (02/26/17 22:53) Oximetry (02/26/17 22:53) CKMB (02/26/17 23:00) CKMB% (02/26/17 23:00) Aspirin Chew (Aspirin Chew) (02/27/17 00:00) Nitroglycerin 2% Oint (Nitroglycerin 2% (02/27/17 00:00) Nitroglycerin Sl (Nitrostat Sl) (02/27/17 00:00) Sodium Chlorid 0.9% 500 Ml Inj (Ns 500 M (02/27/17 00:00) Admit Order (Ed Use Only) (02/27/17 00:13) Place In Observation (02/27/17 ) Vital Signs (Adult) Q4H (02/27/17 01:20) Activity Bed Rest (02/27/17 01:20) Diet Npo (02/27/17 Breakfast) Labs Laboratory Tests Test 02/26/17 23:00 White Blood Count 16.3 TH/MM3 Red Blood Count 4.80 MIL/MM3 Hemoglobin 14.5 GM/DL Hematocrit 43.6 % Mean Corpuscular Volume 90.9 FL Mean Corpuscular Hemoglobin 30.2 PG Mean Corpuscular Hemoglobin Concent 33.2 % Red Cell Distribution Width 12.7 % Platelet Count 217 TH/MM3 Mean Platelet Volume 8.1 FL Neutrophils (%) (Auto) 77.6 % Lymphocytes (%) (Auto) 15.0 % Monocytes (%) (Auto) 6.6 % Eosinophils (%) (Auto) 0.4 % Basophils (%) (Auto) 0.4 % Neutrophils # (Auto) 12.7 TH/MM3 Lymphocytes # (Auto) 2.4 TH/MM3 Monocytes # (Auto) 1.1 TH/MM3 Eosinophils # (Auto) 0.1 TH/MM3 Basophils # (Auto) 0.1 TH/MM3 CBC Comment DIFF FINAL Differential Comment Erythrocyte Sedimentation Rate 4 mm/hr Prothrombin Time 10.0 SEC Prothromb Time International Ratio 0.9 RATIO Activated Partial Thromboplast Time 25.0 SEC Blood Urea Nitrogen 23 MG/DL Creatinine 1.26 MG/DL Random Glucose 145 MG/DL Total Protein 7.3 GM/DL Albumin 3.6 GM/DL Calcium Level 8.6 MG/DL Magnesium Level 1.9 MG/DL Alkaline Phosphatase 91 U/L Aspartate Amino Transf (AST/SGOT) 39 U/L Alanine Aminotransferase (ALT/SGPT) 38 U/L Total Bilirubin 0.3 MG/DL Sodium Level 137 MEQ/L Potassium Level 4.1 MEQ/L Chloride Level 102 MEQ/L Carbon Dioxide Level 28.2 MEQ/L Anion Gap 7 MEQ/L Estimat Glomerular Filtration Rate 58 ML/MIN Total Creatine Kinase 307 U/L Creatine Kinase MB 7.0 NG/ML Troponin I 3.37 NG/ML B-Type Natriuretic Peptide 58 PG/ML Lipase 152 U/L [facility] Medical Decision Making Medical Screen Exam Complete: Yes Emergency Medical Condition: Yes Medical Record Reviewed: Yes Interpretation(s) Last Impressions Chest X-Ray 02/26/17 [id number] Signed Impressions: Service Date/Time: Sunday, February 26, 2017 23:19 - CONCLUSION: No acute disease. Reynaldo Godinez MD Differential Diagnosis Acute coronary syndrome, versus pleurisy, versus pulmonary embolism, versus pneumonia Narrative Course During the course of the patients emergency department visit, the patients history, examination, and differential diagnosis were reviewed with the patient. The patient was placed on a surveillance monitor with oximetry and frequent blood pressure monitoring. The patient had IV access obtained and blood work sent for analysis. An ECG was done on arrival. The patient's ECG reveals a sinus rhythm of 77, QRS duration is 96 ms, QTC 390 ms. T waves are inverted in lead 3, V1. No acute ST segment elevation. The patient was initially provided normal saline a 500 mL bolus 1, sublingual nitroglycerin every 5 minutes 3 when necessary chest pain, aspirin 162 mg by mouth 1, nitroglycerin 1 inch the chest wall. The patients laboratory studies were reviewed and remarkable for a white count of 16.3, hemoglobin 14.5, platelets 217 neutrophils 77.6, sedimentation rate is 4, CMP is remarkable for BUN of 23, GFR 58, glucose 145, AST 39, CPK 307, troponin I 3.37, lipase 152, PT 10, PTT 25. A call was placed out to the patient's rib puller regarding the patient's elevated troponin. I spoke to the covering physician regarding this. He recommended admission for serial cardiac enzymes. He did not recommend administration of heparin as the patient has been on Eliquis. He recommended continuing Eliquis. Radiology studies were reviewed and remarkable for a chest x-ray that shows no acute cardiopulmonary disease. The patients results were discussed with the patient, including the plan of care. I explained that further testing and/ or monitoring is indicated based on the patients history, examination, and/ or laboratory findings. Therefore, I recommended admission for additional evaluation. The patient expressed understanding and was agreeable with this plan. The patient was admitted to the hospital in guarded condition and sent to a bed under the care of the family practice resident service. Physician Communication Physician Communication I spoke to Dr. Thakur, covering for at 11:50 PM regarding this patient' s case and his elevated troponin. He did not recommend anticoagulation with heparin. He recommended continuation of the patient on Eliquis. They recommended admission to the hospitalist service for serial cardiac enzymes. The patient's case including history, pertinent physical examination findings, and laboratory studies were discussed with the family practice residents. It was agreed that the patient would be admitted to Dr. Tatyana Ramirez's service. Diagnosis Primary Impression: Chest pain Qualified Codes: R07.9 - Chest pain, unspecified Additional Impression: Elevated troponin Admitting Information Admitting Physician Requests: it Carmen Osorio MD Feb 26, 2017 23:15
[2017-02-26 23:25] LABS: INTERNATIONAL NORMALIZED RATIO 0.9 RATIO
--- NOTE | 2017-02-26 23:25 | RADRPT ---
EXAM DATE/TIME: 02/26/2017 23:19 [facility] COMPARISON: CHEST SINGLE AP, February 25, 2017, 22:31. INDICATIONS : Chest pain, short of breath. MEDICAL HISTORY : None. SURGICAL HISTORY : None. ENCOUNTER: Initial ACUITY: 1 day PAIN SCORE: 0/10 LOCATION: Bilateral chest FINDINGS: A single view of the chest demonstrates the lungs to be symmetrically aerated without evidence of mas s, infiltrate or effusion. The cardiomediastinal contours are unremarkable. Osseous structures are intact. CONCLUSION: No acute disease. Reynaldo Godinez MD on February 26, 2017 at 23:23 Board Certified Radiologist. This report was verified electronically.
[2017-02-26 23:43] LABS: ALKALINE PHOSPHATASE 91 U/L (45-117); CREATINE KINASE 307 U/L (39-308); TOTAL BILIRUBIN ADULT 0.3 MG/DL (0.2-1.0)
[2017-02-26 23:44] LABS: ALT (GPT) 38 U/L (12-78); ANION GAP 7 MEQ/L (5-15); AST (GOT) 39 U/L (15-37); BICARBONATE 28.2 MEQ/L (21.0-32.0); BLOOD UREA NITROGEN 23 MG/DL (7-18); CHLORIDE 102 MEQ/L (98-107); GLOMERULAR FILTRATION RATE 58 ML/MIN (>89); MAGNESIUM 1.9 MG/DL (1.5-2.5); POTASSIUM 4.1 MEQ/L (3.5-5.1); SODIUM (NA) 137 MEQ/L (136-145)
[2017-02-27] VITALS (12 sets, daily range): BP systolic 100–124; BP diastolic 51–64; PULSE 70–93; RESP 16–18; TEMP 98–99.5; O2SAT 94–99
[2017-02-27] MEDS ORDERED: SODIUM CHLORID 0.9% 500 ML INJ 500 ML IV ONE
[2017-02-27] MEDS ORDERED: ASPIRIN 81 MG CHEW TAB CHEW ONE
[2017-02-27] MEDS ORDERED: NITROGLYCERIN 0.4 MG SL 25 TABS/BTL SL PRN
[2017-02-27] MEDS ORDERED: NITROGLYCERIN 2% OINT 1 GM PACKET TOPICAL ONE
--- NOTE | 2017-02-27 00:33 | HHI.HP ---
[facility] Service Family Medicine Primary Care Physician Tatyana Ramirez MD Admission Diagnosis Elevated troponin with chest pain after cardiac ablation Diagnoses: International Travel<30 Days: No Contact w/Intl Traveler<30days: No Known Affected Area: No History of Present Illness Mr. Solorzano is a 61-year-old male with a past medical history of paroxysmal atrial fibrillation status post cardiac ablation presenting with chest pain. Of note he was discharged from the hospital yesterday around 12:30 PM after having cryoablation done on 02/25 on 2 regions of his heart. Upon discharge he was told that he would have some symptoms after the ablation, but he was unsure if the chest discomfort he was feeling was a part of that. This discomfort started last night after he went for a walk after dinner then returned home and sat down. He had also gone for a walk after lunch, but experienced no symptoms at that time. He describes the discomfort as a 6 out of 10 aching pain located in the midsternal region of his chest with no radiation, made worse by deep inhalation, made better by the nitroglycerin and aspirin he was given on admission to the ED. He also complains of a cough. He has had this cough since over the weekend. Is productive of yellow sputum. No subjective fever last night , but of note did have a fever during his previous hospital stay on 02/25 up to 100.8F. As well as experiencing some chills. No nausea or vomiting, no lightheadedness or dizziness, no diaphoresis. No palpitations. Review of Systems Constitutional: COMPLAINS OF: Chills, DENIES: Fever, Dizziness Respiratory: COMPLAINS OF: Cough, Sputum production, DENIES: Shortness of breath Cardiovascular: DENIES: Palpitations, Lower Extremity Edema Gastrointestinal: DENIES: Abdominal pain, Constipation, Diarrhea Genitourinary: DENIES: Urinary frequency, Dysuria Neurologic: DENIES: Localized weakness, Paresthesias Past Family Social History Past Medical History Hyperlipidemia Paroxysmal atrial fibrillation Psoriasis Past Surgical History Cardiac ablation Reported Medications Reported Meds & Active Scripts Active Cardizem CD 24 HR (Diltiazem CD 24 HR) 180 Mg Caper 180 Mg PO DAILY 30 Days Simvastatin 10 Mg Tab 10 Mg PO DAILY Viagra (Sildenafil Citrate) 50 Mg Tab 50 Mg PO DAILY PRN Fluticasone Nasal [place] 50 Mcg/Act Naspr 2 [place] EACH NARE BID 50 mcg/spray Reported Triamcinolone Acetonide (Triamcinolone Acetonide (Topic) 100 % Pow Eliquis (Apixaban) 5 Mg Tab 5 Mg PO BID Allergies: Coded Allergies: No Known Allergies (Verified Allergy, Unknown, 02/25/17) Family History Father: HTN Mother: , leukemia, DM type 1 Siblings: type 1 and 2 DM Social History Tobacco: never smoker Alcohol: none Illicit drugs: none Physical Exam Vital Signs Vital Signs Date Time Temp Pulse Resp B/P (MAP) Pulse Ox O2 Delivery O2 Flow Rate FiO2 02/26/17 22:49 77 02/26/17 22:36 98.7 82 18 167/81 (109) 97 Room Air Physical Exam GENERAL: This is a well-nourished, well-developed patient laying in bed, in no apparent distress. SKIN: No rashes, ecchymoses or lesions. Cool and dry. HEAD: Atraumatic. Normocephalic. EYES: Pupils equal round and reactive. Extraocular motions intact. No scleral icterus. No injection or drainage. ENT: Nose without bleeding, purulent drainage or septal hematoma. Throat without erythema, tonsillar hypertrophy or exudate. Uvula midline. Airway patent. NECK: Trachea midline. No JVD or lymphadenopathy. Supple, nontender, no meningeal signs. CARDIOVASCULAR: Regular rate and rhythm without murmurs, gallops, or rubs. No tenderness to palpation of midsternal chest wall. RESPIRATORY: Clear to auscultation. Breath sounds equal bilaterally. No wheezes , rales, or rhonchi. GASTROINTESTINAL: Abdomen soft, non-tender, nondistended. No hepato-splenomegaly , or palpable masses. No guarding. MUSCULOSKELETAL: Extremities without clubbing, cyanosis, or edema. No joint tenderness, effusion, or edema noted. No calf tenderness. Negative Homans sign bilaterally. NEUROLOGICAL: Awake and alert. Motor and sensory grossly within normal limits. Normal speech. Laboratory Laboratory Tests Test 02/26/17 23:00 White Blood Count 16.3 Red Blood Count 4.80 Hemoglobin 14.5 Hematocrit 43.6 Mean Corpuscular Volume 90.9 Mean Corpuscular Hemoglobin 30.2 Mean Corpuscular Hemoglobin Concent 33.2 Red Cell Distribution Width 12.7 Platelet Count 217 Mean Platelet Volume 8.1 Neutrophils (%) (Auto) 77.6 Lymphocytes (%) (Auto) 15.0 Monocytes (%) (Auto) 6.6 Eosinophils (%) (Auto) 0.4 Basophils (%) (Auto) 0.4 Neutrophils # (Auto) 12.7 Lymphocytes # (Auto) 2.4 Monocytes # (Auto) 1.1 Eosinophils # (Auto) 0.1 Basophils # (Auto) 0.1 CBC Comment DIFF FINAL Differential Comment Erythrocyte Sedimentation Rate 4 Prothrombin Time 10.0 Prothromb Time International Ratio 0.9 Activated Partial Thromboplast Time 25.0 Blood Urea Nitrogen 23 Creatinine 1.26 Random Glucose 145 Total Protein 7.3 Albumin 3.6 Calcium Level 8.6 Magnesium Level 1.9 Alkaline Phosphatase 91 Aspartate Amino Transf (AST/SGOT) 39 Alanine Aminotransferase (ALT/SGPT) 38 Total Bilirubin 0.3 Sodium Level 137 Potassium Level 4.1 Chloride Level 102 Carbon Dioxide Level 28.2 Anion Gap 7 Estimat Glomerular Filtration Rate 58 Total Creatine Kinase 307 Creatine Kinase MB 7.0 Troponin I 3.37 B-Type Natriuretic Peptide 58 Lipase 152 Result Diagram: 02/26/17229902/26/172299 Imaging Last Impressions Chest X-Ray 02/26/172252 Signed Impressions: Service Date/Time: Sunday, February 26, 2017 23:19 - CONCLUSION: No acute disease. Reynaldo Godinez MD [place] VTE Risk Assessment Caprini VTE Risk Assessment: Mod/High Risk (score >= 2) Caprini Risk Assessment Model Point Value = 1 Point Value = 2 Point Value = 3 Point Value = 5 Age 41-60 Minor surgery BMI > 25 kg/m2 Swollen legs Varicose veins or History of unexplained or recurrent spontaneous Oral contraceptives or hormone replacement Sepsis (< 1 month) Serious lung disease, including pneumonia (< 1 month) Abnormal pulmonary function Acute myocardial infarction Congestive heart failure (< 1 month) History of inflammatory bowel disease Medical patient at bed rest Age 61-74 Arthroscopic surgery Major open surgery (> 45 min) Laparoscopic surgery (> 45 min) Malignancy Confined to bed (> 72 hours) Immobilizing plaster cast Central venous access Age >= 75 History of VTE Family history of VTE Factor V Leiden Prothrombin [id number] Lupus anticoagulant Anticardiolipin antibodies Elevated serum homocysteine Heparin-induced thrombocytopenia Other congenital or acquired thrombophilia Stroke (< 1 month) Elective arthroplasty Hip, pelvis, or leg fracture Acute spinal cord injury (< 1 month) Prophylaxis Regimen Total Risk Factor Score Risk Level Prophylaxis Regimen 0-1 Low Early ambulation 2 Moderate Order ONE of the following: *Sequential Compression Device (SCD) *Heparin 5000 units SQ BID 3-4 Higher Order ONE of the following medications: *Heparin 5000 units SQ TID *Enoxaparin/Lovenox 40 mg SQ daily (WT < 150 kg, CrCl > 30 mL/min) *Enoxaparin/Lovenox 30 mg SQ daily (WT < 150 kg, CrCl > 10-29 mL/min) *Enoxaparin/Lovenox 30 mg SQ BID (WT < 150 kg, CrCl > 30 mL/min) AND/OR *Sequential Compression Device (SCD) 5 or more Highest Order ONE of the following medications: *Heparin 5000 units SQ TID (Preferred with Epidurals) *Enoxaparin/Lovenox 40 mg SQ daily (WT < 150 kg, CrCl > 30 mL/min) *Enoxaparin/Lovenox 30 mg SQ daily (WT < 150 kg, CrCl > 10-29 mL/min) *Enoxaparin/Lovenox 30 mg SQ BID (WT < 150 kg, CrCl > 30 mL/min) AND *Sequential Compression Device (SCD) Assessment and Plan Assessment and Plan Mr. Solorzano is a 61yo male with a past medical history of paroxysmal atrial fibrillation status post cryoablation performed 2 days ago presenting with chest pain and elevated troponins. He is being admitted to observation to rule out NSTEMI. Code Status Full code Discussed Condition With Dr. Sanket Prince Problem List: (1) Chest pain ICD Codes: R07.9 - Chest pain, unspecified Status: Acute Plan: Patient status post cryoablation in posterior and anterior wall of the heart 2 days ago. Discharged yesterday. Chest discomfort may be due to after effects of cryoablation. Overall, have to rule out OH. Troponin and CK-MB elevated. Will monitor for stability or decrease. * Troponin elevated to 3.37. * Will trend every 6 hours 2 with coinciding EKGs. * CK-MB also elevated to 7.0 * Will trend every 6 hours 2 * ED physician, Dr. Osorio, spoke to radio division lieutenant camp advisor, Dr. Thakur, who did not recommend anticoagulation with heparin and recommended continuation of Eliquis. Also recommended serial cardiac enzymes. * Patient given 1 inch of topical nitroglycerin 2% ointment in the ED * Patient also given 1 dose of sublingual nitroglycerin 0.4 mg in the ED * will continue PRN * 1 aspirin chew 162mg given in ED * Monitor with telemetry (2) Atrial fibrillation ICD Codes: I48.91 - Atrial fibrillation Status: Chronic Plan: Status post cryoablation performed 2 days ago. See above. * Continue at home Eliquis * Continue at home diltiazem 180 mg po daily (3) Cough ICD Codes: R05 - Cough Status: Acute Plan: Productive cough of 4 days duration. Chest x-ray shows no acute process. Patient is afebrile. Has a leukocytosis up to 16.3. Will continue to monitor. (4) Dyslipidemia (high LDL; low HDL) ICD Codes: E78.4 - Dyslipidemia with elevated low density lipoprotein cholesterol and abnormally low high density lipoprotein cholesterol Status: Acute Plan: * Continue at home pravastatin 20 mg po daily (5) FEN Status: Acute Plan: Fluids: NS @ 120ml/hr Electrolytes: monitor and replete as needed Nutrition: NPO DVT Prophylaxis: Early ambulation. Continue at home Eliquis 5mg po BID GI Prophylaxis: None indicated at this time Pain/Fever: Morphine 4 mg for severe pain/ Tylenol 650 mg for fever Physician Certification 2 Midnight Certification Type: Admission for Inpatient Services Order for Inpatient Services The services are ordered in accordance with Medicare regulations or non- Medicare payer requirements, as applicable. In the case of services not specified as inpatient-only, they are appropriately provided as inpatient services in accordance with the 2-midnight benchmark. Estimated LOS (days): 2 days is the estimated time the patient will need to remain in the hospital, assuming treatment plan goals are met and no additional complications. Post-Hospital Plan: Home Problem Qualifiers (1) Chest pain: Qualified Codes: R07.9 - Chest pain, unspecified (2) Atrial fibrillation: Qualified Codes: I48.0 - Paroxysmal atrial fibrillation Antonina Goldstein MD R1 Feb 27, 2017 00:33
[2017-02-27] MEDS: SODIUM CHLOR 0.9% 1000 ML INJ 1,000 ML IV SCH ×3 (02:08→21:59)
[2017-02-27] MEDS ORDERED: MORPHINE SULFATE 4 MG/ML INJ IV PUSH PRN (02:15)
[2017-02-27] MEDS ORDERED: ACETAMINOPHEN 325 MG TAB PO PRN (02:15)
[2017-02-27] MEDS ORDERED: DOCUSATE SODIUM 100 MG CAP PO PRN (02:15)
[2017-02-27] MEDS ORDERED: ONDANSETRON HCL 4 MG/2 ML VIAL IV PUSH PRN (02:15)
[2017-02-27] MEDS ORDERED: NALOXONE HCL 0.4 MG/ML AMP IV PUSH PRN (02:15)
[2017-02-27 08:15] LABS: AUTOMATED NEUTROPHIL # 8.5 TH/MM3 (1.8-7.7); BASOPHIL % 0.3 % (0.0-2.0); EOSINOPHIL # 0.1 TH/MM3 (0-0.4); EOSINOPHIL % 0.6 % (0.0-4.0); HEMATOCRIT 37.7 % (39.0-51.0); HEMO FLAGS DIFF FINAL; LYMPH % 16.9 % (9.0-44.0); LYMPHOCYTE # 1.9 TH/MM3 (1.0-4.8); MEAN CELL VOLUME 89.4 FL (80.0-100.0); MEAN CORPUSCULAR HEMOGLOBIN 30.6 PG (27.0-34.0); MEAN CORPUSCULAR HGB CONC 34.2 % (32.0-36.0); MONO % 8.6 % (0.0-8.0); NEUT % 73.6 % (16.0-70.0); PLATELET COUNT 177 TH/MM3 (150-450); RED BLOOD COUNT 4.21 MIL/MM3 (4.50-5.90); RED CELL DISTRIBUTION WIDTH 12.6 % (11.6-17.2); WHITE BLOOD COUNT 11.6 TH/MM3 (4.0-11.0)
[2017-02-27 08:49] LABS: ALT (GPT) 25 U/L (12-78); ANION GAP 5 MEQ/L (5-15); AST (GOT) 24 U/L (15-37); BICARBONATE 25.6 MEQ/L (21.0-32.0); BLOOD UREA NITROGEN 20 MG/DL (7-18); CHLORIDE 106 MEQ/L (98-107); GLOMERULAR FILTRATION RATE 79 ML/MIN (>89); POTASSIUM 3.7 MEQ/L (3.5-5.1); SODIUM (NA) 137 MEQ/L (136-145)
[2017-02-27 08:52] LABS: ALKALINE PHOSPHATASE 72 U/L (45-117); CREATINE KINASE 149 U/L (39-308); INDIRECT BILIRUBIN 0.3 MG/DL (0.0-0.8); TOTAL BILIRUBIN ADULT 0.4 MG/DL (0.2-1.0)
[2017-02-27] MEDS ORDERED: DILTIAZEM-CD 180 MG CAP ER PO SCH (09:00)
[2017-02-27 09:10] LABS: CKMB 2.6 NG/ML (0.5-3.6)
--- NOTE | 2017-02-27 09:23 | EKG ---
Date Performed: 02/27/2017 Time Performed: 05:18:51 PTAGE: 61 years EKG: Baseline artifact obscures underlying rhythm. This is either atrial fibrillation or Sinus r hythm with premature atrial contractions. Mild diffuse ST elevation possibly consistent with pericarditis or injury. This is a new finding and clinical correlation suggested. The rhythm findings are new also . ABNORMAL RHYTHM ECG PREVIOUS TRACING : 02/26/2017 02.57 DOCTOR: Shaun Gonsalez Interpretating Date/Time 02/27/2017 09:22:14
--- NOTE | 2017-02-27 09:33 | EKG ---
Date Performed: 02/26/2017 Time Performed: 22:49:22 PTAGE: 61 years EKG: Sinus rhythm POSSIBLE RIGHT VENTRICULAR CONDUCTION DELAY BORDERLINE ECG INTERPRETATION BASED ON A DEFAULT AGE OF 40 YEARS No significant change from prior electrocardiogram. NO PREVIOUS TRACING DOCTOR: Shaun Gonsalez Interpretating Date/Time 02/27/2017 09:32:17
[2017-02-27] MEDS: PRAVASTATIN SOD 20 MG TAB PO SCH (09:59)
[2017-02-27] MEDS: APIXABAN 5 MG TABLET PO SCH ×2 (09:59→21:58)
--- NOTE | 2017-02-27 11:29 | HHI.FPPN ---
Subjective Remarks Patient seen, examined and discussed with the medicine team. This is a 61-year-old male with history of chronic atrial fibrillation who on February 25, 2017 underwent cryoablation for his atrial fibrillation. He was observed overnight, was stable and went home on the afternoon of February 26. He was ambulating at home last evening, and subsequently developed substernal chest discomfort worse with deep breath without radiation. He felt as though he had a fever and some chills. Because of his cardiac history, he presented to the emergency department. Please see history and physical examination for this admission for additional historical details. This morning, he still does have some chest discomfort with deep inspiration, and feels himself to be in atrial fibrillation. He is intermittently aware of a pounding of his heart and when he checks his pulse it feels irregular. Otherwise, denies shortness of breath, abdominal pain. Does complain of a mild headache. Objective Vitals Vital Signs Date Time Temp Pulse Resp B/P (MAP) Pulse Ox O2 Delivery O2 Flow Rate FiO2 02/27/17 09:05 96 02/27/17 08:19 98.7 93 18 124/56 (78) 96 02/27/17 07:56 85 02/27/17 04:30 90 02/27/17 02:48 98.9 82 18 100/55 (70) 94 02/27/17 02:40 02/27/17 02:40 84 02/27/17 01:45 77 16 113/64 (80) 99 Room Air 02/26/17 22:49 77 02/26/17 22:36 98.7 82 18 167/81 (109) 97 Room Air I/O 02/26/17 02/26/17 02/26/17 02/27/17 02/27/17 02/27/17 07:00 15:00 23:00 07:00 15:00 23:00 Intake Total 500 ml Balance 500 ml Intake IV Total 500 ml # Voids 1 Result Diagram: 02/27/17 0752 02/27/17 0752 Other Results Laboratory Tests Test 02/26/17 23:00 02/27/17 07:52 White Blood Count 16.3 TH/MM3 11.6 TH/MM3 Red Blood Count 4.80 MIL/MM3 4.21 MIL/MM3 Hemoglobin 14.5 GM/DL 12.9 GM/DL Hematocrit 43.6 % 37.7 % Mean Corpuscular Volume 90.9 FL 89.4 FL Mean Corpuscular Hemoglobin 30.2 PG 30.6 PG Mean Corpuscular Hemoglobin Concent 33.2 % 34.2 % Red Cell Distribution Width 12.7 % 12.6 % Platelet Count 217 TH/MM3 177 TH/MM3 Mean Platelet Volume 8.1 FL 8.0 FL Neutrophils (%) (Auto) 77.6 % 73.6 % Lymphocytes (%) (Auto) 15.0 % 16.9 % Monocytes (%) (Auto) 6.6 % 8.6 % Eosinophils (%) (Auto) 0.4 % 0.6 % Basophils (%) (Auto) 0.4 % 0.3 % Neutrophils # (Auto) 12.7 TH/MM3 8.5 TH/MM3 Lymphocytes # (Auto) 2.4 TH/MM3 1.9 TH/MM3 Monocytes # (Auto) 1.1 TH/MM3 1.0 TH/MM3 Eosinophils # (Auto) 0.1 TH/MM3 0.1 TH/MM3 Basophils # (Auto) 0.1 TH/MM3 0.0 TH/MM3 CBC Comment DIFF FINAL DIFF FINAL Differential Comment Erythrocyte Sedimentation Rate 4 mm/hr Prothrombin Time 10.0 SEC Prothromb Time International Ratio 0.9 RATIO Activated Partial Thromboplast Time 25.0 SEC Blood Urea Nitrogen 23 MG/DL 20 MG/DL Creatinine 1.26 MG/DL 0.96 MG/DL Random Glucose 145 MG/DL 126 MG/DL Total Protein 7.3 GM/DL 6.1 GM/DL Albumin 3.6 GM/DL 3.0 GM/DL Calcium Level 8.6 MG/DL 7.9 MG/DL Magnesium Level 1.9 MG/DL Alkaline Phosphatase 91 U/L 72 U/L Aspartate Amino Transf (AST/SGOT) 39 U/L 24 U/L Alanine Aminotransferase (ALT/SGPT) 38 U/L 25 U/L Total Bilirubin 0.3 MG/DL 0.4 MG/DL Sodium Level 137 MEQ/L 137 MEQ/L Potassium Level 4.1 MEQ/L 3.7 MEQ/L Chloride Level 102 MEQ/L 106 MEQ/L Carbon Dioxide Level 28.2 MEQ/L 25.6 MEQ/L Anion Gap 7 MEQ/L 5 MEQ/L Estimat Glomerular Filtration Rate 58 ML/MIN 79 ML/MIN Total Creatine Kinase 307 U/L 149 U/L Creatine Kinase MB 7.0 NG/ML 2.6 NG/ML Troponin I 3.37 NG/ML 2.44 NG/ML B-Type Natriuretic Peptide 58 PG/ML Lipase 152 U/L Direct Bilirubin 0.1 MG/DL Indirect Bilirubin 0.3 MG/DL Imaging Last Impressions Chest X-Ray 02/26/17 6028 Signed Impressions: Service Date/Time: Sunday, February 26, 2017 23:19 - CONCLUSION: No acute disease. Reynaldo Godinez MD Objective Remarks O. CONSTITUTIONAL/GEN: normally nourished, in NAD. EYES: conjunctiva normal, PERRLA, EOMI. ENT: Mouth and pharynx normal. NECK: thyroid midline, carotids symmetrical. LUNGS: clear A-P, respiratory effort is normal. CARDIOVASCULAR: Irregular without murmur or gallop. No significant edema. GI/ABD: soft without masses, without organomegaly. : no CVA tenderness NEURO: No focal deficits. SKIN: color normal, no rashes noted. HEME/LYMPH: no bruising, petechia or significant adenopathy MUSC: back is normal in appearance. Extremities are normal in appearance. PSYCH/MENTAL STATUS: Alert and oriented x 3. EKG shows either atrial fibrillation or premature complexes resulting in an irregular rhythm. A/P Assessment and Plan Mr. Solorzano is a 61yo male with a past medical history of paroxysmal atrial fibrillation status post cryoablation performed 2 days ago who presented with chest pain and was found to have elevated troponins. He is being admitted to observation to rule out NSTEMI. Attending Attestation Patient seen and examined. Case reviewed and discussed with the resident team. Agree with plan of care as discussed with me and documented in the resident note. Problem List: (1) Chest pain ICD Codes: R07.9 - Chest pain, unspecified Status: Acute Plan: Patient status post cryoablation in posterior and anterior wall of the heart 2 days ago. Discharged yesterday. Chest discomfort may be due to after effects of cryoablation. Overall, have to rule out [place]. Troponin and CK-MB elevated. Will monitor for stability or decrease. * Troponin elevated to 3.37. * Will trend every 6 hours 2 with coinciding EKGs. * CK-MB also elevated to 7.0 * Will trend every 6 hours 2 * ED physician, Dr. Osorio, spoke to program management professional bpo specialist, Dr. Thakur, who did not recommend anticoagulation with heparin and recommended continuation of Eliquis. Also recommended serial cardiac enzymes. * Patient given 1 inch of topical nitroglycerin 2% ointment in the ED * Patient also given 1 dose of sublingual nitroglycerin 0.4 mg in the ED * will continue PRN * 1 aspirin chew 162mg given in ED * Monitor with telemetry (2) Atrial fibrillation ICD Codes: I48.91 - Atrial fibrillation Status: Chronic Plan: Status post cryoablation performed 2 days ago. See above. * Continue at home Eliquis * Continue at home diltiazem 180 mg po daily (3) Cough ICD Codes: R05 - Cough Status: Acute Plan: Productive cough of 4 days duration. Chest x-ray shows no acute process. Patient is afebrile. Has a leukocytosis up to 16.3. Will continue to monitor. (4) Dyslipidemia (high LDL; low HDL) ICD Codes: E78.4 - Dyslipidemia with elevated low density lipoprotein cholesterol and abnormally low high density lipoprotein cholesterol Status: Acute Plan: * Continue at home pravastatin 20 mg po daily (5) FEN Status: Acute Plan: Fluids: NS @ 120ml/hr Electrolytes: monitor and replete as needed Nutrition: NPO DVT Prophylaxis: Early ambulation. Continue at home Eliquis 5mg po BID GI Prophylaxis: None indicated at this time Pain/Fever: Morphine 4 mg for severe pain/ Tylenol 650 mg for fever Problem Qualifiers (1) Chest pain: Qualified Codes: R07.9 - Chest pain, unspecified (2) Atrial fibrillation: Qualified Codes: I48.0 - Paroxysmal atrial fibrillation Tatyana Ramirez MD Feb 27, 2017 11:29
--- NOTE | 2017-02-27 12:44 | EKG ---
Date Performed: 02/27/2017 Time Performed: 11:07:35 PTAGE: 61 years EKG: ATRIAL FIBRILLATION POSSIBLE RIGHT VENTRICULAR CONDUCTION DELAY Mild diffuse ST elevation e ither representing early repolarization, pericarditis or injury. No significant change from prior teresa ctrocardiogram. PREVIOUS TRACING : 02/27/2017 05.18 DOCTOR: Shaun Gonsalez Interpretating Date/Time 02/27/2017 12:42:12
[2017-02-27 12:55] LABS: CREATINE KINASE 132 U/L (39-308)
[2017-02-27 13:17] LABS: CKMB 2.1 NG/ML (0.5-3.6)
[2017-02-28 00:04] VITALS: PULSE 65
[2017-02-28] MEDS: SODIUM CHLOR 0.9% 1000 ML INJ 1,000 ML IV SCH (03:08)
[2017-02-28 03:35] VITALS: PULSE 62
[2017-02-28 04:40] VITALS: BP 126/63; PULSE 67; RESP 18; TEMP 100; O2SAT 96
[2017-02-28 08:06] LABS: HEMATOCRIT 42.1 % (39.0-51.0); MEAN CELL VOLUME 89.6 FL (80.0-100.0); MEAN CORPUSCULAR HEMOGLOBIN 31.4 PG (27.0-34.0); PLATELET COUNT 200 TH/MM3 (150-450); RED CELL DISTRIBUTION WIDTH 12.6 % (11.6-17.2); REVIEW FLAG FINAL; WHITE BLOOD COUNT 11.8 TH/MM3 (4.0-11.0)
[2017-02-28 08:29] LABS: BICARBONATE 23.3 MEQ/L (21.0-32.0); POTASSIUM 3.7 MEQ/L (3.5-5.1)
[2017-02-28] MEDS: PRAVASTATIN SOD 20 MG TAB PO SCH (09:00)
--- NOTE | 2017-02-28 09:33 | HHI.FPPN ---
Subjective Remarks No acute events overnight. Pt doing well this AM. Patient reports reverting back to sinus rhythm last evening, then reverting back to afib early this morning. Eating well. Afebrile. P-67. He denies CP, SOB, and N/V. (Manda Teran MD R1) Objective Vitals Vital Signs Date Time Temp Pulse Resp B/P (MAP) Pulse Ox O2 Delivery O2 Flow Rate FiO2 02/28/17 04:40 100.0 67 18 126/63 (84) 96 02/28/17 03:35 62 02/28/17 01:44 21 02/28/17 00:04 65 02/27/17 23:46 98.0 70 18 100/51 (67) 94 02/27/17 20:01 90 02/27/17 16:00 99.5 89 18 108/57 (74) 96 02/27/17 12:53 86 02/27/17 12:05 99.5 91 18 109/56 (73) 96 I/O 02/27/17 02/27/17 02/27/17 02/28/17 02/28/17 02/28/17 07:00 15:00 23:00 07:00 15:00 23:00 Intake Total 500 ml Balance 500 ml Intake IV Total 500 ml # Voids 1 6 (Manda Teran MD R1) Result Diagram: 02/28/17 0715 02/28/17 0718 Objective Remarks GENERAL: Well-nourished, well-developed patient. lying in bed. in NAD. SKIN: Warm and dry. HEAD: Normocephalic. EYES: No scleral icterus. No injection or drainage. NECK: Supple, trachea midline. No JVD or lymphadenopathy. CARDIOVASCULAR: Irregular rhythm and rate. No m/r/g. RESPIRATORY: Breath sounds equal bilaterally. No accessory muscle use. GASTROINTESTINAL: Abdomen soft, non-tender, nondistended. EXTREMITIES: No cyanosis, or edema. NEUROLOGICAL: Awake, alert, and oriented x 3. Non-focal. (Manda Teran MD R1) A/P Assessment and Plan Mr. Solorzano is a 61yo male with a past medical history of paroxysmal atrial fibrillation status post cryoablation performed 02/25 who presented with chest pain and was found to have elevated troponin. Discharge Planning Cardiology consultation and recs (Manda Teran MD R1) Attending Attestation Patient seen and examined. Case reviewed and discussed with the resident team. Agree with plan of care as discussed with me and documented in the resident note. (Tatyana Ramirez MD) Problem List: (1) Chest pain ICD Codes: R07.9 - Chest pain, unspecified Status: Acute Plan: Patient status post cryoablation in posterior and anterior wall of the heart 02/15. Chest discomfort may be due to after effects of cryoablation. Overall, have to rule out PR. * Troponin trending down * Continue with Eliquis * Cardiology consulted, recs appreciated -He is on and off between sinus rhythm and atrial fibrillation -D/C Cardizem -Amiodarone started -Cardioversion not indicated at this time -If heart rate is controlled and gentleman is stable, he can be discharged home later today. * Patient given 1 inch of topical nitroglycerin 2% ointment in the ED * Patient also given 1 dose of sublingual nitroglycerin 0.4 mg in the ED * will continue PRN * 1 aspirin chew 162mg given in ED * Monitor with telemetry (2) Atrial fibrillation ICD Codes: I48.91 - Atrial fibrillation Status: Chronic Plan: Status post cryoablation performed 02/25. See above. * Continue at home Eliquis * D/C Cardizem * Start Amiodarone (3) Cough ICD Codes: R05 - Cough Status: Acute Plan: Productive cough of 4 days duration. Chest x-ray shows no acute process. Patient is afebrile. WBC trending down. (4) Dyslipidemia (high LDL; low HDL) ICD Codes: E78.4 - Dyslipidemia with elevated low density lipoprotein cholesterol and abnormally low high density lipoprotein cholesterol Status: Acute Plan: * Continue at home pravastatin 20 mg po daily (5) FEN Status: Acute Plan: Fluids: None Electrolytes: monitor and replete as needed Nutrition: Heart Healthy Diet DVT Prophylaxis: Early ambulation. Continue at home Eliquis 5mg po BID GI Prophylaxis: None indicated at this time Pain/Fever: Morphine 4 mg for severe pain/ Tylenol 650 mg for fever (Manda Teran MD R1) Problem Qualifiers (1) Chest pain: Qualified Codes: R07.9 - Chest pain, unspecified (2) Atrial fibrillation: Qualified Codes: I48.0 - Paroxysmal atrial fibrillation Manda Teran MD R1 Feb 28, 2017 09:33 Tatyana Ramirez MD Feb 28, 2017 14:15
[2017-02-28] MEDS ORDERED: AMIODARONE 200 MG TAB PO SCH (10:15)
--- NOTE | 2017-02-28 10:22 | MB ---
cc: SHANITA ORTEZ M.D., HANSCY M.D. DATE OF CONSULTATION 02/28/2017 REASON FOR CONSULTATION Atrial fibrillation, chest pain. HISTORY Mr. Solorzano is a 61-year-old gentleman with atrial fibrillation, recent ablation who was discharged home and readmitted to the emergency room due to chest pain. While in the emergency room, converted into atrial fibrillation. I was consulted for evaluation. The chart was reviewed. The patient was evaluated. ALLERGIES None SOCIAL HISTORY Negative for smoking and drinking. FAMILY HISTORY Noncontributory to his current medical condition. MEDICATIONS He is on currently on: 1. Cardizem p.o. 2. Eliquis REVIEW OF SYSTEMS Currently refers no chest pain or chest discomfort, some palpitation, but no fever. PHYSICAL EXAM Alert, fully oriented. VITAL SIGNS: His blood pressure 126/63, pulse 67, respiratory rate 18. LUNGS: Ventilated. CARDIOVASCULAR: S1, S2 irregular. No tachycardia. No gallop. ABDOMEN: Soft. No mass. EXTREMITIES: No edema. Electrocardiogram, atrial fibrillation. LABORATORY DATA Hemoglobin is 14.8, white blood cell 11.8. Potassium is 3.7, creatinine is 0.95, troponin was 3.37 currently is 1.95. ASSESSMENT AND RECOMMENDATIONS Mr. Solorzano has an atrial fibrillation ablation. Troponin is going to be increased post ablation. He has been trending down. This is not an active ischemic event. There are no active ST changes. The gentleman is experiencing an inflammatory procedures. He is on and off between sinus rhythm and atrial fibrillation. He is on anticoagulation. At this point, I am going to DC the Cardizem. I am going to put him on amiodarone. There is no need for cardioversion because of the patient flipping back and forth between atrial fibrillation and sinus rhythm. If heart rate is controlled and gentleman is stable, he can be discharged home later today. I will monitor him during hospitalization. MD ZEV Steve/MARK /10:04 AM /10:13 AM
[2017-02-28] MEDS: APIXABAN 5 MG TABLET PO SCH (10:54)
--- NOTE | 2017-02-28 14:41 | HHI.DCPOC ---
Discharge Care Plan Diagnosis: (1) Atrial fibrillation Goals to Promote Your Health * To prevent worsening of your condition and complications, take all of your medications as prescribed and continue to follow with Dr. Ramirez and Dr. Barron. Directions to Meet Your Goals Take your medications as prescribed Follow your dietary instruction Follow activity as directed Keep your appointments as scheduled Take your immunizations and boosters as scheduled If your symptoms worsen call your PCP, if no PCP go to Urgent Care Center or Emergency Room Smoking is Dangerous to Your Health. Avoid second hand smoke Call the 24-hour hour crisis hotline for domestic abuse at Sanket Prince MD R2 Feb 28, 2017 14:41
[2017-02-28] MEDS ORDERED: NITR0.4S SL (14:44)
[2017-02-28] MEDS ORDERED: AMIO200T PO ×2 (14:44)
[2017-03-07] MEDS ORDERED: AMIODARONE 200 MG TAB PO SCH (09:00)
== END 2017-02-28 21:11 | disposition home or self-care (01) ==
LOC: NEPC 22:34 → NEDA 02-27 00:14 → UNDOADMIN 02-27 00:14 → NEDA 02-27 01:20 → INTOOBSV 02-27 01:20 → NEPFCDU 02-27 02:08
PROVIDERS: ADMIT Family Medicine; ATTEND Family Medicine
DX: R07.9 Chest pain, unspecified (principal); R74.8 Abnormal levels of other serum enzymes; I48.0 Paroxysmal atrial fibrillation; E78.4 Other hyperlipidemia; J06.9 Acute upper respiratory infection, unspecified; Z79.01 Long term (current) use of anticoagulants; Z79.899 Other long term (current) drug therapy; R94.31 Abnormal electrocardiogram [ECG] [EKG]
CPT/HCPCS: 71010; 80048; 80053; 80076; 82550; 82552; 83690; 83735; 83880; 84484; 85025; 85027; 85610; 85652; 85730; 93005; 96360; 96361; 99285; G0378; J7030; J7040